=== PATIENT | male | born 1970 | race Caucasian/White ===

== ENCOUNTER 2017-04-23 10:31 | Emergency (ER) | payer BC ==
[2017-04-23 10:46] VITALS: RESP 16; TEMP 98.1; O2SAT 95
[2017-04-23] MEDS ORDERED: IBUPROFEN 600 MG TAB PO ONE (10:48)
--- NOTE | 2017-04-23 10:52 | EDPHY ---
H & P Time Seen by Provider: 04/23/17 10:42 HPI/ROS: CHIEF COMPLAINT: Left lower back pain HISTORY OF PRESENT ILLNESS: Patient is a 46-year-old male who presents emergency department with left low back pain. 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 He landed on his left buttock. He now has left lower back discomfort. It is worse with movement. Pain is moderate to severe. He has had no incontinence of urine or stool. No fevers or chills. No numbness or tingling. No weakness. Patient did not strike his head. He denies neck pain. He has no shortness of breath. No chest or abdomen pain. REVIEW OF SYSTEMS: My complete review of systems is negative except as mentioned in the HPI. Past Medical/Surgical History: Includes lower back disc herniation Social History: Patient does not smoke. Physical Exam: Vitals noted GENERAL: Well-appearing, in no acute distress, alert. HEAD: No evidence of trauma. EYES: PERRLA, EOMI, normal to inspection. ENT: Airway intact, no dental or oral injury, no malocclusion, no hemotympanum , normal external examination. NECK: The trachea is midline. There is no crepitus. The C-spine is nontender. NEXUS criteria is negative (no midline tenderness, no distracting injury, no altered mental status, no recent alcohol use, no focal neurologic deficit). RESPIRATORY: Clear to auscultation bilaterally, no rales, rhonchi or wheezing. CVS: Regular rate and rhythm, no rubs, murmurs, or gallops. ABDOMEN: Soft, nontender. Pelvis: Stable. No tenderness palpation. Hips full range of motion. BACK: Normal to inspection, no spinal step off, mild sacral tenderness to palpation, no notable bruising or abrasions. Negative leg raise bilaterally. SKIN: Normal color, warm, dry. No pallor or diaphoresis. EXTREMITIES: Atraumatic, neurovascularly intact distally in all extremities, hips with full range of motion, moves all extremities freely. NEURO/PSYCH: Alert and oriented x 3, GCS 15, normal mood and affect, normal motor sensory exam. Constitutional: Initial Vital Signs Temperature (C) 36.7 C 04/23/17 10:40 Heart Rate 80 04/23/17 10:40 Respiratory Rate 16 04/23/17 10:40 Blood Pressure 125/84 H 04/23/17 10:40 O2 Sat (%) 95 04/23/17 10:40 O2 Delivery Mode Room Air Allergies/Adverse Reactions: No Known Allergies Allergy (Unverified 04/23/17 10:39) Home Medications: Medication Instructions Recorded Cyclobenzaprine [Flexeril] 10 mg PO TID #15 tab 04/23/17 FLUoxetine 04/23/17 Naltrexone HCl 04/23/17 Vistaril 04/23/17 oxyCODONE/APAP 5/325 [Percocet 1 - 2 tab PO Q4PRN PRN #11 tab 04/23/17 5/325 (*)] Medical Decision Making - Diagnostics Imaging Results: Imaging Impressions Lumbar Spine X-Ray 04/23/17 10:56 Impression: 1. No acute findings in the lumbar spine. 2. Degenerative change, most prominent at L5-S1. Hip X-Ray 04/23/17 11:16 Impression: No acute osseous findings. ED Course/Re-evaluation: In the emergency department I discussed possible etiologies with the patient. I answered all his questions. Patient consented to an x-ray of his lumbar spine. He was offered pain medication but wished to hold off. He did accept ibuprofen 600 mg orally. Lumbar spine x-ray: Please refer the dictated report. Degenerative change. No acute disease. Left hip x-ray: Please refer the dictated report. No acute disease. I discussed results with the patient. Answered all his questions. He is given warnings prior to leaving. He is given a prescription of Flexeril and Percocet. He will return with worsening symptoms. Differential Diagnosis: My differential includes but is not limited to fracture, dislocation, disc herniation, cauda equina syndrome, sprain, strain, contusion - Data Points Medications Given: Discontinued Medications Ibuprofen (Motrin) 600 mg PO EDNOW ONE Stop: 04/23/17 10:49 Last Admin: 04/23/17 10:52 Dose: 600 mg Departure - Departure Disposition: Home, Routine, Self-Care Clinical Impression: Low back pain Qualifiers: Chronicity: acute Back pain laterality: left Sciatica presence: with sciatica Sciatica laterality: sciatica of left side Qualified Code(s): M54.42 - Lumbago with sciatica, left side Condition: Good Instructions: Acute Low Back Pain (ED) Additional Instructions: Return with increasing pain, weakness, numbness, incontinence of urine or stool , fever or any other concerns. Referrals: LUMA DOVE [Primary Care Provider] - As per Instructions Prescriptions: Cyclobenzaprine [Flexeril] 10 mg PO TID #15 tab oxyCODONE/APAP 5/325 [Percocet 5/325 (*)] 1 - 2 tab PO Q4PRN PRN #11 tab PRN Reason: For Moderate To Severe Pain
[2017-04-23 12:11] VITALS: BP 105/67; PULSE 56
== END 2017-04-23 12:10 | disposition home or self-care (01) ==
LOC: CED 10:31
DX: S39.92XA Unspecified injury of lower back, initial encounter (principal); V80.010A Animal-rider injured by fall from or being thrown from horse in noncollision accident, initial encounter; Y99.8 Other external cause status; Y93.89 Activity, other specified
CPT/HCPCS: 72100-PO; 73502-PO